=== PATIENT | male | born 1990 | race Caucasian/White ===

== ENCOUNTER 2021-10-22 13:42 | Emergency (ER) | payer OTHER ==
[2021-10-22] MEDS ORDERED: LEVAQUIN500 MG PO (14:36)
[2021-10-22 15:08] LABS: CORONAVIRUS 2019 SARS-COV-2 NEGATIVE (NEGATIVE); INFLUENZA A NAA NEGATIVE (NEGATIVE)
== END 2021-10-22 14:44 | disposition home or self-care (01) ==
LOC: FER 13:42
PROVIDERS: Emergency Medicine
DX: J32.9 Chronic sinusitis, unspecified (principal); Z20.822 Contact with and (suspected) exposure to COVID-19
CPT/HCPCS: 71046; U0002